=== PATIENT | female | born 1985 | race Two or more races ===

== ENCOUNTER 2018-11-19 19:39 | Emergency (ER) | payer MEDICAID, OTHER ==
[~2018-11-19] VITALS: Ht 157.5 cm; Wt 124.7 kg
[2018-11-19 20:24] VITALS: BP 120/85
[2018-11-19 20:59] LABS: Urine Bacteria NONE SEEN /hpf (None Seen); Urine Blood Negative /uL (Negative); Urine Mucus FEW (None Seen); Urine Specific Gravity 1.031 (1.001-1.035); Urine WBC 11 /hpf (0 - 5)
[2018-11-19 21:08] LABS: Basophils # (auto) 0 uL; Eosinophils # (auto) 0.2 uL; Hematocrit 36.7 % (36.0-46.0); Lymphocytes # (auto) 2.8 uL; Monocytes # (auto) 0.8 uL; Red Cell Distribution Width 15.8 % (11.8-14.3)
[2018-11-19 21:11] LABS: Basophils % (auto) 0.3 % (0.0-2.0); Eosinophils % (auto) 2.4 % (0.0-7.0); Hemoglobin 11.9 g/dL (12.2-16.2); Lymphocytes % (auto) 27.7 % (10.0-50.0); Mean Corpuscular Hemoglobin 25.2 pg (28.0-32.0); Mean Corpuscular Hgb Conc. 32.5 g/dL (32.0-36.0); Mean Corpuscular Volume 77.4 fL (80.0-100.0); Monocytes % (auto) 7.9 % (0.0-12.0); Neutrophils # (auto) 6.3 uL; Neutrophils % (auto) 61.7 % (37.0-80.0); Nucleated Red Blood Cells % 0.1 %; Platelet Count (auto) 400 10^3/uL (140-450); Red Blood Cells 4.74 10^6/uL (4.0-5.20); White Blood Cell 10.2 10^3/uL (4.4-10.8)
[2018-11-19 21:27] LABS: Albumin 3.7 g/dL (3.4-5.0); BUN/Creatinine Ratio 18.1; Calcium 9.1 mg/dL (8.5-10.1); Potassium 3.9 mmol/L (3.5-5.1)
[2018-11-19 21:39] LABS: Bilirubin, Total 0.3 mg/dL (0.2-1.0); Total Protein 7.7 g/dL (6.4-8.2)
== END 2018-11-19 23:24 | disposition left against medical advice (07) ==
LOC: ER 19:54
DX: R10.30 Lower abdominal pain, unspecified (principal); Z53.21 Procedure and treatment not carried out due to patient leaving prior to being seen by health care provider
CPT/HCPCS: 36415; 80053; 81001; 81025; 82150; 83690; 85025

== ENCOUNTER 2019-06-04 15:14 | Emergency (ER) | payer MEDICAID ==
[~2019-06-04] VITALS: Ht 157.5 cm; Wt 136.1 kg
[2019-06-04 15:34] VITALS: BP 120/88
[2019-06-04] MEDS ORDERED: cefTRIAXone SOD 1,000 MG VL IM ONE (16:15)
== END 2019-06-04 16:49 | disposition home or self-care (01) ==
LOC: ER 15:14
DX: J02.9 Acute pharyngitis, unspecified (principal); I10 Essential (primary) hypertension
CPT/HCPCS: 96372; 99283; J0696

== ENCOUNTER → 2019-09-21 | Emergency (ER) | payer MEDICAID ==
[~2019-09-21] VITALS: Ht 160 cm; Wt 127.0 kg
[~2019-09-21] MED LIST: HYDROcodone-ACET 7.5/325MG TAB PO ONE; KETOROLAC TROMETH 60MG/2ML VIAL IM ONE
[2019-09-21 14:29] LABS: Basophils # (auto) 0 10 ^3/uL (0-0.2); Eosinophils # (auto) 0 10 ^3/uL (0-0.8); Hematocrit 36.7 % (36.0-46.0); Hemoglobin 11.8 g/dL (12.2-16.2); Lymphocytes # (auto) 1.4 10 ^3/uL (0.4-5.4); Lymphocytes % (auto) 7.4 % (10.0-50.0); Mean Corpuscular Hemoglobin 24.8 pg (28.0-32.0); Mean Corpuscular Hgb Conc. 32.1 g/dL (32.0-36.0); Neutrophils # (auto) 16.8 10 ^3/uL (1.6-8.6)
[2019-09-21 14:31] LABS: Basophils % (auto) 0.1 % (0.0-2.0); Mean Corpuscular Volume 77.1 fL (80.0-100.0); Monocytes # (auto) 0.7 10 ^3/uL (0-1.3); Monocytes % (auto) 3.7 % (0.0-12.0); Neutrophils % (auto) 88.8 % (37.0-80.0); Platelet Count (auto) 446 10^3/uL (140-450); Red Blood Cells 4.76 10^6/uL (4.0-5.20); Red Cell Distribution Width 15.6 % (11.8-14.3); White Blood Cell 18.9 10^3/uL (4.4-10.8)
[2019-09-21 14:43] LABS: Albumin 3.5 g/dL (3.4-5.0); Calcium 9.3 mg/dL (8.5-10.1); Potassium 3.8 mmol/L (3.5-5.1)
[2019-09-21 14:46] LABS: BUN/Creatinine Ratio 22.6; Bilirubin, Total 0.2 mg/dL (0.2-1.0); CRP High Sensitivity 0.81 mg/dL (< 0.3); Total Protein 8.1 g/dL (6.4-8.2)
[2019-09-21 18:32] VITALS: BP 155/94
== END | disposition home or self-care (01) ==
LOC: ER 12:42
DX: R05 Cough (principal); R50.9 Fever, unspecified; M79.10 Myalgia, unspecified site; R06.02 Shortness of breath; I10 Essential (primary) hypertension; Z20.828 Contact with and (suspected) exposure to other viral communicable diseases
CPT/HCPCS: 36415; 71045; 80053; 81025; 82728; 85025; 85379; 86141; 87635; 96372; 99284; J1885

== ENCOUNTER 2022-10-12 10:20 | Emergency (ER) | payer MEDICAID ==
[~2022-10-12] VITALS: Ht 157.5 cm; Wt 163.1 kg
[2022-10-12 11:21] VITALS: BP 162/87; PULSE 76; RESP 20; TEMP 98.7; O2SAT 97
[2022-10-12 12:10] LABS: Urine Bacteria FEW /hpf (None Seen); Urine Blood Negative /uL (Negative); Urine Mucus FEW (None Seen); Urine Specific Gravity 1.021 (1.001-1.035); Urine WBC 15 /hpf (0 - 5)
[2022-10-12] MEDS ORDERED: IBUP-1456 PO (12:28)
[2022-10-12] MEDS ORDERED: PROM1SOL4 PO (12:28)
[2022-10-12] MEDS ORDERED: CIPR-173 PO (12:28)
== END 2022-10-12 12:34 | disposition home or self-care (01) ==
LOC: ER 10:20
DX: G44.209 Tension-type headache, unspecified, not intractable (principal); N39.0 Urinary tract infection, site not specified; J20.9 Acute bronchitis, unspecified; J03.90 Acute tonsillitis, unspecified; E11.9 Type 2 diabetes mellitus without complications; I10 Essential (primary) hypertension
CPT/HCPCS: 70450; 71045; 81001

== ENCOUNTER 2023-01-11 17:09 | Emergency (ER) | payer MEDICAID ==
[~2023-01-11] VITALS: Ht 160 cm; Wt 120.0 kg
[~2023-01-11 17:09] MED LIST changes: +CIPR-173 PO; -HYDROcodone-ACET 7.5/325MG TAB PO ONE; +IBUP-1456 PO; -KETOROLAC TROMETH 60MG/2ML VIAL IM ONE; +PROM1SOL4 PO
[2023-01-11 19:19] LABS: Urine Bacteria NONE SEEN /hpf (None Seen); Urine Blood Negative /uL (Negative); Urine Clarity Clear (Clear); Urine Color Colorless (Yellow); Urine Protein, UAD Negative (Negative); Urine Specific Gravity 1.019 (1.001-1.035); Urine Urobilinogen Normal (Negative); Urine WBC 8 /hpf (0 - 5); Urine pH 6.5 (5.0-8.0)
[2023-01-11] MEDS ORDERED: CIPR-173 PO (19:34)
[2023-01-11 22:00] VITALS: BP 153/95; PULSE 85; RESP 20; TEMP 98.4; O2SAT 95
== END 2023-01-11 22:06 | disposition home or self-care (01) ==
LOC: ER 17:09
DX: N39.0 Urinary tract infection, site not specified (principal); I10 Essential (primary) hypertension; E11.9 Type 2 diabetes mellitus without complications; Z79.1 Long term (current) use of non-steroidal anti-inflammatories (NSAID); Z79.899 Other long term (current) drug therapy
CPT/HCPCS: 81001

== ENCOUNTER 2024-06-16 10:08 | Emergency (ER) | payer MEDICAID ==
[~2024-06-16] VITALS: Ht 160 cm; Wt 155.0 kg
[2024-06-16 11:16] VITALS: BP 142/95; PULSE 80; RESP 17; TEMP 97.1; O2SAT 96
[2024-06-16] MEDS ORDERED: TRIA0.1P12 MT (11:43)
[2024-06-16] MEDS ORDERED: CEPH500C PO (11:43)
[2024-06-16] MEDS ORDERED: CETI5TAB6 PO (11:44)
--- NOTE | 2024-06-16 11:44 | ED.PDOC ---
SOB-HPI HPI Comments 38 year old presents for painful lip sore to the lower outer region Started 3 months ago No associated symptoms Chief Complaint: Flu like Time Seen by MD: 10:47 Primary Care Provider: SOUMYA Reviewed notes: Nurses Notes, Medications, Allergies Information Source: Patient Mode of Arrival: Ambulatory Past Medical History PAST MEDICAL HISTORY: DM, HTN, Denies Surgical History: Denies all surgeries LPN INSTRUCTOR History: No Pertinent LPN INSTRUCTOR History Family History Family History: Reviewed,noncontributory to illness Social History Smoker: Non-Smoker Alcohol: Denies ETOH Use Drugs: Denies Drug Use Lives In: Home All Other Systems: Reviewed and Negative (Per HPI) Physical Exam General Appearance: No Apparent Distress, Normal HEENT: Normal ENT Inspection, Pharynx Normal, TMs Normal Neck: Full Range of Motion, Non-Tender, Normal, Normal Inspection Respiratory: Chest Non-Tender, Lungs Clear, No Accessory Muscle Use, No Respiratory Distress, Normal Breath Sounds Cardiovascular: No Edema, No JVD, No Murmur, No Gallop, Normal Peripheral Pulses, Regular Rate/Rhythm Breast Exam: Deferred Gastrointestinal: No Organomegaly, Non Tender, No Pulsatile Mass, Normal Bowel Sounds, Soft Genitalia: Deferred Pelvic: Deferred Rectal: Deferred Extremities: No calf tenderness, Normal capillary refill, Normal inspection, Normal range of motion, Non-tender, No pedal edema Musculoskeletal : Apperance: Normal Neurologic: Alert, veterinary meat inspector II-XII nml as Tested, No Motor Deficits, Normal Affect, Normal Mood, No Sensory Deficits Cerebellar Function: Normal Reflexes: Normal Skin: Dry, Normal Color, Warm Lymphatic: No Adenopathy Was a procedure done? Was a procedure done?: No Differential Dx Differential Diagnosis: URI X-Ray, Labs, Meds, VS Vital Signs Date Time Temp Pulse Resp B/P (MAP) Pulse Ox O2 Delivery O2 Flow Rate FiO2 06/16/24 11:16 97.1 80 17 142/95 (111) 96 97.1 06/16/24 11:16 80 17 96 Room Air 06/16/24 10:28 97.1 80 17 142/95 (111) 96 97.1 X-Ray, Labs, Meds, VS Comment Presentation consistent with aphthous ulcer. No evidence of Ge's Angina, large abscess pocket, or other complications. Provided prescription for symptoms. Advised Pt on supportive therapies, including avoidance of salty or sugary foods/coffee/citrus, refraining from biting inner cheeks, applidation of ice to lesions, gentle use of soft-bristle toothbrushes Instructed Pt to f/up w/ PCP or ETC should symptoms worsen or not improve. Pt verbally expressed understanding and all questions were addressed to Pt's satisfaction. Time of 1ST Reevaluation: 11:38 Reevaluation 1ST: Improved Patient Education/Counseling: Diagnosis, Treatment Family Education/Counseling: Diagnosis, Treatment Departure 1 Departure Time of Disposition: 12:00 Impression: Primary Impression: Aphthous stomatitis Disposition: HOME / SELF CARE / HOMELESS Condition: Stable e-Prescriptions Cetirizine Hcl (Cetirizine Hcl) 5 Mg Tab 10 MG PO DAILY for 30 Days, #60 TAB 2 Refills Prov: CORINNE HAYES NP 06/16/24 Cephalexin Monohydrate (Cephalexin) 500 Mg Cap 1 CAP PO QID for 7 Days, #28 CAP 0 Refills Prov: CORINNE HAYES NP 06/16/24 Triamcinolone Acetonide (Triamcinolone In Orabase) 0.1 % Pst 1 APPLIC MT BID for 5 Days, #2.5 GRAMS 0 Refills Prov: CORINNE HAYES NP 06/16/24 Discharged With: Self Critical Care Note Critical Care Time?: No Stability Stability form required: No Heart Score Heart Score: Heart Score Response (Comments) Value History N/A 0 EKG N/A 0 Age N/A 0 Risk Factors N/A 0 Troponin N/A 0 Total 0 CORINNE HAYES NP Jun 16, 2024 11:44
== END 2024-06-16 11:58 | disposition home or self-care (01) ==
LOC: ER 10:08
DX: K12.0 Recurrent oral aphthae (principal)

== ENCOUNTER 2024-09-25 12:03 | Emergency (ER) | payer MEDICAID ==
[~2024-09-25] VITALS: Ht 160 cm; Wt 151.8 kg
[~2024-09-25 12:03] MED LIST changes: +CEPH500C PO; +CETI5TAB6 PO; +TRIA0.1P12 MT
[2024-09-25 12:56] VITALS: BP 144/97; TEMP 98
--- NOTE | 2024-09-25 13:14 | ED.PDOC ---
History of Present Illness HPI Comments Patient is a 39-year-old female with a past medical history of hypertension, diabetes presented to the ED with a chief complaint of headache. Patient reports she started to have headache 2 weeks ago on the left side and across the forehead, intermittent, [id number] in severity, denied any visual abnorma lity, no focal motor weakness, no sensory abnormality. Patient also reported of left-sided chest pain which was nonradiating, pressure-like and intermittent denied any shortness of breath or palpitations. She reports to be having intermittent dizziness when she walks and gets up from sitting position. Chief Complaint: Headache Time Seen by MD: 12:21 Primary Care Provider: SOUMYA Allergies: Coded Allergies: NO KNOWN ALLERGIES (Unverified , 12/16/13) Home Meds Active Scripts Cetirizine Hcl (Cetirizine Hcl) 5 Mg Tab, 10 MG PO DAILY for 30 Days, #60 TAB 2 Refills Prov:CORINNE HAYES NP 06/16/24 Cephalexin Monohydrate (Cephalexin) 500 Mg Cap, 1 CAP PO QID for 7 Days, #28 CAP 0 Refills Prov:CORINNE HAYES NP 06/16/24 Triamcinolone Acetonide (Triamcinolone In Orabase) 0.1 % Pst, 1 APPLIC MT BID for 5 Days, #2.5 GRAMS 0 Refills Prov:CORINNE HAYES NP 06/16/24 Ciprofloxacin Hcl (Cipro) 500 Mg Tab, 1 TAB PO BID, #14 TAB Prov:MAHESH BOTELLO MD 01/11/23 Ibuprofen (Ibuprofen) 800 Mg Tab, 1 TAB PO TID, #30 TAB Prov:CORONA ROBLES 10/12/22 Promethazine-Dm (Promethazine Dm 6.25-15 mg/5Ml) 1 Lea Lea, 5 ML PO TID, #150 ML Prov:CORONA ROBLES 10/12/22 Ciprofloxacin Hcl (Cipro) 500 Mg Tab, 1 TAB PO BID, #20 TAB Prov:CORONA ROBLES 10/12/22 Past Medical History PAST MEDICAL HISTORY: DM, HTN, Denies Surgical History: Denies all surgeries CHEMIST INTERNSHIP History: No Pertinent CHEMIST INTERNSHIP History Family History Family History: Reviewed,noncontributory to illness Social History Smoker: Non-Smoker Alcohol: Denies ETOH Use Drugs: Denies Drug Use Lives In: Home Constitutional: denies: chills, diaphoresis, fatigue, fever, malaise, sweats, weakness, others EENTM: reports: ear bleeding Respiratory: denies: cough, hemoptysis, orthopnea, SOB at rest, shortness of breath, SOB with excertion, stridor, wheezing, others Cardiovascular: denies: chest pain, dizzy spells, diaphoresis, Dyspnea on exertion, edema, irregular heart beat, left arm pain, lightheadedness, palpitations, PND, syncope, others Gastrointestinal: denies: abdomen distended, abdominal pain, blood streaked bowels, constipated, diarrhea, dysphagia, difficulty swallowing, hematemesis, melena, nausea, poor appetite, poor fluid intake, rectal bleeding, rectal pain, vomiting, others Genitourinary: denies: abnormal vagina bleeding, burning, dyspareunia, dysuria, flank pain, frequency, hematuria, incontinence, pain, , vagina discharge, urgency, others Neurological: reports: dizziness, headache Musculoskeletal: denies: back pain, gout, joint pain, joint swelling, muscle pain, muscle stiffness, neck pain, others Integumetry: denies: bruises, change in color, change in hair/nails, dryness, laceration, lesions, lumps, rash, wounds, others Allergic/Immunocompromised: denies: Difficulty Healing, Frequent Infections, Hives, Itching, others Hematologic/Lymphatic: denies: anemia, blood clots, easy bleeding, easy bruising, swollen glands, others Endocrine: denies: excessive hunger, excessive sweating, excessive thirst, excessive urination, flushing, intolerance to cold, intolerance to heat, unexplained weight gain, unexplained weight loss, others Psychiatric: denies: anxiety, bipolar disorder, depression, hopeless, panic disorder, schizophrenia, sleepless, suicidal, others Physical Exam General Appearance: No Apparent Distress, Normal HEENT: PERRL/EOMI, Pharynx Normal, TM Abnormal (R) Neck: Full Range of Motion, Non-Tender Respiratory: Chest Non-Tender, Lungs Clear, No Accessory Muscle Use, No Respiratory Distress, Normal Breath Sounds Cardiovascular: No Edema, No JVD, No Murmur, Regular Rate/Rhythm Breast Exam: Deferred Gastrointestinal: No Organomegaly, Non Tender, No Pulsatile Mass, Normal Bowel Sounds, Soft Genitalia: Deferred Pelvic: Deferred Rectal: Deferred Extremities: Normal inspection, Normal range of motion, Non-tender, No pedal edema Neurologic: Alert, machine cementer II-XII nml as Tested, No Motor Deficits, Normal Affect, Normal Mood, No Sensory Deficits Cerebellar Function: Normal Reflexes: NOT DONE Skin: Dry, Normal Color Peripheral Pulses: 2+ dorsalis pedis (R), 2+ dorsalis pedis (L), 2+ Radial (R), 2+ Radial (L) Lymphatic: No Adenopathy Was a procedure done? Was a procedure done?: No EKG EKG : Woodruff: Normal Cardiac Rhythm: NSR Block: None Hypertrophy: None ST: Normal Differential Dx Considerations may include: migraine, tension type headache, vertigo, chest wall pain, costochondritis, X-Ray, Labs, Meds, VS Vital Signs Date Time Temp Pulse Resp B/P (MAP) Pulse Ox O2 Delivery O2 Flow Rate FiO2 09/25/24 13:30 87 19 97 Room Air* 0 21 09/25/24 12:56 98.0 82 17 144/97 (113) 96 98.0 Lab Test 09/25/24 14:25 09/25/24 13:22 09/25/24 12:39 Range/Units Troponin I High Sensitivity < 3 L < 3 L </=34 ng/L White Blood Count 8.1 4.4-10.8 10^3/uL Red Blood Count 4.68 4.0-5.20 10^6/uL Hemoglobin 12.8 12.2-16.2 g/dL Hematocrit 37.6 36.0-46.0 % Mean Corpuscular Volume 80.4 80.0-100.0 fL Mean Corpuscular Hemoglobin 27.3 L 28.0-32.0 pg Mean Corpuscular Hemoglobin Concent 33.9 32.0-36.0 g/dL Red Cell Distribution Width 14.2 11.8-14.3 % Platelet Count 391 140-450 10^3/uL Mean Platelet Volume 8.3 6.9-10.8 fL Neutrophils (%) (Auto) 64.7 37.0-80.0 % Lymphocytes (%) (Auto) 25.4 10.0-50.0 % Monocytes (%) (Auto) 6.6 0.0-12.0 % Eosinophils (%) (Auto) 2.8 0.0-7.0 % Basophils (%) (Auto) 0.5 0.0-2.0 % Neutrophils # (Auto) 5.2 1.6-8.6 10 ^3/uL Lymphocytes # (Auto) 2.0 0.4-5.4 10 ^3/uL Monocytes # (Auto) 0.5 0-1.3 10 ^3/uL Eosinophils # (Auto) 0.2 0-0.8 10 ^3/uL Basophils # (Auto) 0 0-0.2 10 ^3/uL Nucleated Red Blood Cells 0.0 % Sodium Level 138 136-145 mmol/L Potassium Level 4.2 3.5-5.1 mmol/L Chloride Level 106 98-107 mmol/L Carbon Dioxide Level 26 20-31 mmol/L Anion Gap 6 5-15 Blood Urea Nitrogen 11 9-23 mg/dL Creatinine 0.64 0.550-1.02 mg/dL Glomerular Filtration Rate Calc 116 >90 mL/min BUN/Creatinine Ratio 17.2 10.0-20.0 Serum Glucose 84 74-106 mg/dL Calcium Level 10.1 8.7-10.4 mg/dL Urine Color Yellow Yellow Urine Clarity Clear Clear Urine pH 6.5 5.0-9.0 Urine Specific [place] 1.026 1.001-1.035 Urine Protein Negative Negative Urine Ketones Negative Negative Urine Blood 1+ H Negative /uL Urine Nitrite Negative Negative Urine Bilirubin Negative Negative Urine Urobilinogen Normal Negative mg/dL Urine Leukocyte Esterase 2+ Negative /uL Urine RBC <1 0 - 4 /hpf Urine Microscopic WBC 7 H 0-5 /HPF Urine Squamous Epithelial Cells Few <5 /hpf Urine Bacteria Few H None Seen /hpf Urine Mucus Few None Seen Urine Glucose Normal Normal mg/dL Urine Test Negative Negative Current Medications Medications (Trade) Dose Ordered Sig/Isha Route Start Time Stop Time Status Last Admin Ibuprofen (Motrin Tablet) 600 mg ONCE ONCE PO 09/25/24 13:00 09/25/24 13:01 DC 09/25/24 13:46 Patient 39-year-old female with a history of hypertension and diet-controlled diabetes, morbidly obese presented to the ER with a left-sided headache for the last 2 weeks. Patient denied any blurred vision, no sensory abnormalities, on physical exam there were no motor deficits, no ataxia, no cerebellar signs. Patient also reported of noticing blood on the Q-tips when she cleaned right ear 3 days ago and on examination no perforation in the tympanic membrane was seen but blood was seen in the external ear canal and patient did not have any hearing deficit. Patient is a advised to get a head CT but she denied. Patient reported having mild relief from the headache with ibuprofen. Patient was advised to visit her primary care provider in case she continues to have headache and notices anymore blood from the ear. Time of 1ST Reevaluation: 14:15 Reevaluation 1ST: Improved Patient Education/Counseling: Diagnosis, Treatment Family Education/Counseling: No Family Present SEPSIS Sepsis Screen Vital Signs Date Time Temp Pulse Resp B/P (MAP) Pulse Ox O2 Delivery O2 Flow Rate FiO2 09/25/24 13:30 87 19 97 Room Air* 0 21 09/25/24 12:56 98.0 82 17 144/97 (113) 96 98.0 Laboratory Tests Test 09/25/24 13:22 White Blood Count 8.1 10^3/uL (4.4-10.8) Medications Medications Dose Ordered Sig/Isha Route Start Time Stop Time Status Last Admin Dose Admin Ibuprofen 600 mg ONCE ONCE PO 09/25/24 13:00 09/25/24 13:01 DC 09/25/24 13:46 Departure 1 Departure Time of Disposition: 15:30 Impression: Primary Impression: Migraine Additional Impression: Tension headache Disposition: 01 HOME / SELF CARE / HOMELESS Condition: Stable Critical Care Note Critical Care Time?: No Stability Stability form required: No Heart Score Heart Score: Heart Score Response (Comments) Value History N/A 0 EKG N/A 0 Age N/A 0 Risk Factors N/A 0 Troponin N/A 0 Total 0 BRENNA NOBLE RESIDENT Sep 25, 2024 13:14
[2024-09-25 13:30] VITALS: PULSE 87; RESP 19; O2SAT 97
[2024-09-25 13:38] LABS: Hematocrit 37.6 % (36.0-46.0); Hemoglobin 12.8 g/dL (12.2-16.2); Mean Corpuscular Hemoglobin 27.3 pg (28.0-32.0); Mean Corpuscular Volume 80.4 fL (80.0-100.0); Nucleated Red Blood Cells % 0.0 %
[2024-09-25 13:45] LABS: Chloride 106 mmol/L (98-107); Potassium 4.2 mmol/L (3.5-5.1); Sodium 138 mmol/L (136-145)
[2024-09-25 13:46] LABS: Anion Gap 6 (5-15); Carbon Dioxide 26 mmol/L (20-31)
[2024-09-25] MEDS: IBUPROFEN 600 MG TAB PO ONE (13:46)
[2024-09-25 13:47] LABS: Calcium 10.1 mg/dL (8.7-10.4)
[2024-09-25 13:51] LABS: Glucose 84 mg/dL (74-106)
[2024-09-25 13:52] LABS: BUN/Creatinine Ratio 17.2 (10.0-20.0); Blood Urea Nitrogen 11 mg/dL (9-23)
[2024-09-25 14:01] LABS: Urine Protein, UAD Negative (Negative)
== END 2024-09-25 16:36 | disposition home or self-care (01) ==
LOC: ER 12:03
DX: G43.909 Migraine, unspecified, not intractable, without status migrainosus (principal); G44.209 Tension-type headache, unspecified, not intractable; E11.9 Type 2 diabetes mellitus without complications; I10 Essential (primary) hypertension; Z79.1 Long term (current) use of non-steroidal anti-inflammatories (NSAID); Z79.899 Other long term (current) drug therapy
CPT/HCPCS: 36415; 80048; 81001; 81025; 84484; 85025

== ENCOUNTER 2024-10-28 09:49 | Emergency (ER) | payer MEDICAID ==
[~2024-10-28] VITALS: Ht 160 cm; Wt 152.6 kg
[2024-10-28 09:51] VITALS: TEMP 97.8
--- NOTE | 2024-10-28 11:00 | ED.PDOC ---
History of Present Illness HPI Comments A 39-YEAR-OLD FEMALE WITH A HISTORY OF DIABETES, AND HYPERTENSION, PRESENTS TO THE ED WITH A C/C OF A COUGH, WITH ASSOCIATED DYSURIA. PATIENT STATES THAT HER SYMPTOMS HAVE BEEN ONSET FOR THE PAST 3 WEEKS, WITH NO ALLEVIATING FACTORS AT THIS TIME. PATIENT NOTES SHE HAS BEEN TAKING HER PRESCRIBED KEFLEX MEDICATION, BUT DENIES ANY ALLEVIATION. PATIENT DENIES ANY NAUSEA, VOMITING, DIARRHEA, HEADACHE, OR ANY OTHER ASSOCIATED SYMPTOMS, MODIFIERS AT THIS TIME. Chief Complaint: Cough Time Seen by MD: 11:00 Primary Care Provider: SOUMYA Reviewed Notes: Nurses Notes, Medications, Allergies Allergies: Coded Allergies: NO KNOWN ALLERGIES (Unverified , 12/16/13) Home Meds Active Scripts Prednisone (Prednisone) 20 Mg Tab, 60 MG PO DAILY, #18 TAB Prov:COROAN ROBLES 10/28/24 Promethazine-Dm (Promethazine Dm 6.25-15 mg/5Ml) 1 Lea Lea, 5 ML PO TID, #180 ML Prov:CORONA ROBLES 10/28/24 Ciprofloxacin Hcl (Cipro) 500 Mg Tab, 1 TAB PO BID, #20 TAB Prov:CORONA ROBLES 10/28/24 Cetirizine Hcl (Cetirizine Hcl) 5 Mg Tab, 10 MG PO DAILY for 30 Days, #60 TAB 2 Refills Prov:CORINNE HAYES NP 06/16/24 Cephalexin Monohydrate (Cephalexin) 500 Mg Cap, 1 CAP PO QID for 7 Days, #28 CAP 0 Refills Prov:CORINNE HAYES NP 06/16/24 Triamcinolone Acetonide (Triamcinolone In Orabase) 0.1 % Pst, 1 APPLIC MT BID for 5 Days, #2.5 GRAMS 0 Refills Prov:CORINNE HAYES NP 06/16/24 Ciprofloxacin Hcl (Cipro) 500 Mg Tab, 1 TAB PO BID, #14 TAB Prov:MAHESH BOTELLO MD 01/11/23 Ibuprofen (Ibuprofen) 800 Mg Tab, 1 TAB PO TID, #30 TAB Prov:CORONA ROBLES 10/12/22 Promethazine-Dm (Promethazine Dm 6.25-15 mg/5Ml) 1 Lea Lea, 5 ML PO TID, #150 ML Prov:CORONA ROBLES 10/12/22 Ciprofloxacin Hcl (Cipro) 500 Mg Tab, 1 TAB PO BID, #20 TAB Prov:CORONA ROBLES 10/12/22 Information Source: Patient Mode of Arrival: Ambulatory Severity: Mild, Moderate Timing: Weeks Duration: Intermittent Prehospital treatment: None Medication Refill: For: Other (COUGH AND DYSURIA ) Past Medical History PAST MEDICAL HISTORY: DM, HTN Surgical History: Denies all surgeries SILK SPOTTER History: No Pertinent SILK SPOTTER History Family History Family History: Reviewed,noncontributory to illness Social History Smoker: Non-Smoker Alcohol: Denies ETOH Use Drugs: Denies Drug Use Lives In: Home Constitutional: denies: chills, diaphoresis, fatigue, fever, malaise, sweats, weakness, others EENTM: reports: nose congestion; denies: blurred vision, double vision, ear bleeding, ear discharge, ear drainage, ear pain, ear ringing, eye pain, eye redness, hearing loss, mouth pain, mouth swelling, nasal discharge, nose bleeding, nose pain, photophobia, tearing, throat pain, throat swelling, voice changes, others Respiratory: reports: cough; denies: hemoptysis, orthopnea, SOB at rest, shortness of breath, SOB with excertion, stridor, wheezing, others Cardiovascular: denies: chest pain, dizzy spells, diaphoresis, Dyspnea on exertion, edema, irregular heart beat, left arm pain, lightheadedness, palpita tions, PND, syncope, others Gastrointestinal: denies: abdomen distended, abdominal pain, blood streaked doretha wels, constipated, diarrhea, dysphagia, difficulty swallowing, hematemesis, melena, nausea, poor appetite, poor fluid intake, rectal bleeding, rectal pain, vomiting, others Genitourinary: reports: dysuria; denies: abnormal vagina bleeding, burning, dyspareunia, flank pain, frequency, hematuria, incontinence, pain, , vagina discharge, urgency, others Neurological: denies: dizziness, fainting, headache, left sided numbness, left sided weakness, numbness, paresthesia, pre-existing deficit, right sided numbness, right sided weakness, seizure, speech problems, tingling, tremors, weakness, others Musculoskeletal: denies: back pain, gout, joint pain, joint swelling, muscle pain, muscle stiffness, neck pain, others Integumetry: denies: bruises, change in color, change in hair/nails, dryness, laceration, lesions, lumps, rash, wounds, others Allergic/Immunocompromised: denies: Difficulty Healing, Frequent Infections, Hives, Itching, others Hematologic/Lymphatic: denies: anemia, blood clots, easy bleeding, easy bruising, swollen glands, others Endocrine: denies: excessive hunger, excessive sweating, excessive thirst, excessive urination, flushing, intolerance to cold, intolerance to heat, unexplained weight gain, unexplained weight loss, others Psychiatric: denies: anxiety, bipolar disorder, depression, hopeless, panic d isorder, schizophrenia, sleepless, suicidal, others All Other Systems: Reviewed and Negative Physical Exam General Appearance: No Apparent Distress, Obese HEENT: Normal ENT Inspection, PERRL/EOMI, Pharynx Normal, TMs Normal Neck: Full Range of Motion, Non-Tender, Normal, Normal Inspection Respiratory: Chest Non-Tender, Expiration, No Accessory Muscle Use, No Respiratory Distress, Rhonchi Cardiovascular: No Edema, No JVD, No Murmur, No Gallop, Normal Peripheral Pulses, Regular Rate/Rhythm Breast Exam: Deferred Gastrointestinal: No Organomegaly, Non Tender, No Pulsatile Mass, Normal Bowel Sounds, Soft Genitalia: Deferred Pelvic: Deferred Rectal: Deferred Extremities: No calf tenderness, Normal capillary refill, Normal inspection, Normal range of motion, Non-tender, No pedal edema Musculoskeletal : Apperance: Normal Neurologic: Alert, museum educator II-XII nml as Tested, No Motor Deficits, Normal Affect, Normal Mood, No Sensory Deficits Cerebellar Function: Normal Reflexes: Normal Skin: Dry, Normal Color, Warm Peripheral Pulses: 2+ carotid (R), 2+ carotid (L) Lymphatic: No Adenopathy Was a procedure done? Was a procedure done?: No Differential Dx Considerations may include: COUGH, URINARY TRACT INFECTION, BRONCHITIS, INFLUENZA,PNEUMONIA, BRONCHITIS X-Ray, Labs, Meds, VS Vital Signs Date Time Temp Pulse Resp B/P (MAP) Pulse Ox O2 Delivery O2 Flow Rate FiO2 10/28/24 09:51 97.8 85 18 136/78 95 97.8 X-Ray, Labs, Meds, VS Comment EXTERNAL MEDICAL RECORDS REVIEWED: [NONE] INDEPENDENT HISTORIANS: [NONE] SOCIAL DETERMINANTS OF HEALTH: [NONE] LABS ORDERED: URINARY ANALYSIS REVIEWED AND INTERPRETED RESULTS: UTI IMAGING ORDERED: CHEST X-RAY ORDERED: NO ACUTE FINDING. TREATMENTS ORDERED: PROCEDURES PERFORMED: NONE CRITICAL CARE TIME: NONE I HAVE DISCUSSED THE PATIENT WITH THE ATTENDING PHYSICIAN (DOT) AND S/HE AGREES WITH THE PATIENT'S PLAN OF CARE AND DISPOSITION. BASED ON HISTORY OF PRESENT ILLNESS, AND PHYSICAL EXAM, PATIENT WILL BE DISCHARGED HOME. DISCUSSED PLAN FOR DISCHARGE HOME WITH RX [CIPRO, PHENERGAN AND PREDNISONE]. MEDICATION WARNINGS GIVEN. SHARED DECISION MAKING: DISCUSSED WITH PATIENT THAT THEIR WORKUP WAS NORMAL. PATIENT INSTRUCTED TO FOLLOW UP WITH PRIMARY CARE PROVIDER IN 1-2 DAYS FOR RE- EVALUATION OF SYMPTOMS. PATIENT VERBALIZES UNDERSTANDING TO RETURN TO ED FOR NEW OR WORSENING SYMPTOMS OR IF FOLLOW UP WITH PCP CANNOT BE OBTAINED. PATIENT FEELS COMFORTABLE GOING HOME AT THIS TIME. ALL QUESTIONS ADDRESSED AT TIME OF DISCHARG E. Time of 1ST Reevaluation: 11:31 Reevaluation 1ST: Improved Patient Education/Counseling: Diagnosis, Treatment, Need For Follow Up Family Education/Counseling: Diagnosis, Treatment, Need For Follow Up Medical Screening: No EMC Exist At This Time SEPSIS Sepsis Screen Date sepsis recognized/suspect: Oct 28, 2024 Time Sepsis recognized/suspect: 951 Recent Procedure: No On Antibiotic Therapy: No Respiratory Rate >20: No Heart Rate >90: No Temp<36 C (96.8 F) or >38.3 C: No SBP <90 or MAP <65 mmHG: No New Acute Mental Status Change: No Is the patient on CPAP, BIPAP,: No Physician Orders Chest Portable (10/28/24 09:58) Vital Signs Date Time Temp Pulse Resp B/P (MAP) Pulse Ox O2 Delivery O2 Flow Rate FiO2 10/28/24 09:51 97.8 85 18 136/78 95 97.8 Departure 1 Departure Time of Disposition: 11:10 Impression: Primary Impression: Acute bronchitis Qualified Codes: J20.9 - Acute bronchitis, unspecified Additional Impression: Acute UTI (urinary tract infection) Disposition: HOME / SELF CARE / HOMELESS Condition: Stable Additional Instructions: FOLLOW-UP WITH PCP IN 1 TO 2 DAYS. TAKE MEDICATIONS PRESCRIBED. RETURN TO ED FOR ANY NEW OR WORSENING SYMPTOMS. e-Prescriptions Prednisone (Prednisone) 20 Mg Tab 60 MG PO DAILY, #18 TAB Prov: CORONA ROBLES 10/28/24 Promethazine-Dm (Promethazine Dm 6.25-15 mg/5Ml) 1 Lea Lea 5 ML PO TID, #180 ML Prov: CORONA ROBLES 10/28/24 Ciprofloxacin Hcl (Cipro) 500 Mg Tab 1 TAB PO BID, #20 TAB Prov: CORONA ROBLES 10/28/24 Discharged With: Self Critical Care Note Critical Care Time?: No Stability Stability form required: No Heart Score Heart Score: Heart Score Response (Comments) Value History N/A 0 EKG N/A 0 Age N/A 0 Risk Factors N/A 0 Troponin N/A 0 Total 0 I personally scribed for CORONA ROBLES ([email or web address]) on 10/28/24 at 11:00. Electronically submitted by Catracho Hansen ([email or web address]). I personally scribed for CORONA ROBLES ([email or web address]) on 10/28/24 at 11:04. Electronically submitted by Catracho Hansen ([email or web address]). CORONA ROBLES Oct 28, 2024 11:00
[2024-10-28] MEDS ORDERED: PRED20TA2 PO (11:02)
[2024-10-28 11:10] VITALS: BP 141/84; PULSE 85; RESP 18; O2SAT 97
--- NOTE | 2024-10-28 11:13 | DVH ---
CHEST RADIOGRAPH Indication:COUGH Technique: Single frontal view of the chest was obtained COMPARISON: 10/12/2022 FINDINGS: Lines and Tubes: None Lungs: Clear Pleura: No effusion. No pneumothorax. Cardiomediastinal contours: Unremarkable Bones: Unremarkable IMPRESSION: No acute disease.
== END 2024-10-28 11:08 | disposition home or self-care (01) ==
LOC: ER 09:49
DX: J20.9 Acute bronchitis, unspecified (principal); N39.0 Urinary tract infection, site not specified; I10 Essential (primary) hypertension; E11.9 Type 2 diabetes mellitus without complications; Z79.899 Other long term (current) drug therapy; Z79.52 Long term (current) use of systemic steroids; Z79.1 Long term (current) use of non-steroidal anti-inflammatories (NSAID)
CPT/HCPCS: 71045

== ENCOUNTER 2024-10-28 19:38 | Emergency (ER) | payer MEDICAID ==
[~2024-10-28] VITALS: Ht 160 cm; Wt 150.0 kg
[~2024-10-28 19:38] MED LIST changes: +PRED20TA2 PO
[2024-10-28 20:09] VITALS: BP 134/85; PULSE 94; RESP 18; TEMP 99.3; O2SAT 96
--- NOTE | 2024-10-28 20:30 | ED.PDOC ---
HPI Allergic reaction HPI Comments 39 year old female presents to ER with complaints of possible allergic reaction x 1 day. Patient states she started experiencing 10/10 sore throat pain and frontal headache 2 hours after she took her 1st dose of prednisone that she was prescribed for acute bronchitis in here earlier today and believes she is "havin g an allergic reaction". Patient presents to ER ambulatory on arrival, with steady gait, speaking in clear and complete sentences, in no distress. Denies fever, shortness of breath, chest pain, difficulty swallowing, dizziness, palpitations, rash/skin changes or any further symptoms/complaints Chief Complaint: Allergic Reaction Time Seen by MD: 19:47 Primary Care Provider: SOUMYA Reviewed Notes: Nurses Notes, Medications, Allergies Allergies: Coded Allergies: NO KNOWN ALLERGIES (Unverified , 12/16/13) Home Meds Active Scripts Prednisone (Prednisone) 20 Mg Tab, 60 MG PO DAILY, #18 TAB Prov:CORONA ROBLES 10/28/24 Promethazine-Dm (Promethazine Dm 6.25-15 mg/5Ml) 1 Lea Lea, 5 ML PO TID, #180 ML Prov:CORONA ROBLES 10/28/24 Ciprofloxacin Hcl (Cipro) 500 Mg Tab, 1 TAB PO BID, #20 TAB Prov:CORONA ROBLES 10/28/24 Cetirizine Hcl (Cetirizine Hcl) 5 Mg Tab, 10 MG PO DAILY for 30 Days, #60 TAB 2 Refills Prov:CORINNE HAYES NP 06/16/24 Cephalexin Monohydrate (Cephalexin) 500 Mg Cap, 1 CAP PO QID for 7 Days, #28 CAP 0 Refills Prov:CORINNE HAYES NP 06/16/24 Triamcinolone Acetonide (Triamcinolone In Orabase) 0.1 % Pst, 1 APPLIC MT BID for 5 Days, #2.5 GRAMS 0 Refills Prov:CORINNE HAYES NP 06/16/24 Ciprofloxacin Hcl (Cipro) 500 Mg Tab, 1 TAB PO BID, #14 TAB Prov:MAHESH BOTELLO MD 01/11/23 Ibuprofen (Ibuprofen) 800 Mg Tab, 1 TAB PO TID, #30 TAB Prov:CORONA ROBLES 10/12/22 Promethazine-Dm (Promethazine Dm 6.25-15 mg/5Ml) 1 Lea Lea, 5 ML PO TID, #150 ML Prov:CORONA ROBLES 10/12/22 Ciprofloxacin Hcl (Cipro) 500 Mg Tab, 1 TAB PO BID, #20 TAB Prov:CORONA ROBLES 10/12/22 Information Source: Patient Mode of Arrival: Ambulatory Past Medical History PAST MEDICAL HISTORY: DM, HTN Surgical History: Denies all surgeries SUPPLY CLERK History: No Pertinent SUPPLY CLERK History Family History Family History: Unknown Social History Smoker: Non-Smoker Alcohol: Denies ETOH Use Drugs: Denies Drug Use Lives In: Home Constitutional: denies: chills, diaphoresis, fatigue, fever, malaise, sweats, weakness, others EENTM: reports: others (As stated in HPI) Respiratory: denies: cough, hemoptysis, orthopnea, SOB at rest, shortness of breath, SOB with excertion, stridor, wheezing, others Cardiovascular: denies: chest pain, dizzy spells, diaphoresis, Dyspnea on exertion, edema, irregular heart beat, left arm pain, lightheadedness, palpitations, PND, syncope, others Gastrointestinal: denies: abdomen distended, abdominal pain, blood streaked bowels, constipated, diarrhea, dysphagia, difficulty swallowing, hematemesis, melena, nausea, poor appetite, poor fluid intake, rectal bleeding, rectal pain, vomiting, others Genitourinary: denies: abnormal vagina bleeding, burning, dyspareunia, dysuria, flank pain, frequency, hematuria, incontinence, pain, , vagina discharge, urgency, others Neurological: reports: others (As stated in HPI) Musculoskeletal: denies: back pain, gout, joint pain, joint swelling, muscle pain, muscle stiffness, neck pain, others Integumetry: denies: bruises, change in color, change in hair/nails, dryness, laceration, lesions, lumps, rash, wounds, others Allergic/Immunocompromised: denies: Difficulty Healing, Frequent Infections, Hives, Itching, others Hematologic/Lymphatic: denies: anemia, blood clots, easy bleeding, easy bruising, swollen glands, others Endocrine: denies: excessive hunger, excessive sweating, excessive thirst, excessive urination, flushing, intolerance to cold, intolerance to heat, unexplained weight gain, unexplained weight loss, others Psychiatric: denies: anxiety, bipolar disorder, depression, hopeless, panic disorder, schizophrenia, sleepless, suicidal, others Physical Exam General Appearance: No Apparent Distress, Obese HEENT: Normal ENT Inspection, PERRL/EOMI, Pharynx Normal, TMs Normal Neck: Full Range of Motion, Non-Tender, Normal Respiratory: Chest Non-Tender, Lungs Clear, No Accessory Muscle Use, No Respiratory Distress, Normal Breath Sounds Cardiovascular: No Murmur, No Gallop, Regular Rate/Rhythm Breast Exam: Deferred Gastrointestinal: NOT DONE Genitalia: Deferred Pelvic: Deferred Rectal: Deferred Extremities: Normal capillary refill, Normal range of motion Neurologic: Alert, thin film technician II-XII nml as Tested, No Motor Deficits, Normal Affect, Normal Mood, No Sensory Deficits Cerebellar Function: Normal Reflexes: Normal Skin: Dry, Normal Color, Warm Peripheral Pulses: 2+ Radial (R), 2+ Radial (L), 2+ Brachial (R), 2+ Brachial (L) Lymphatic: No Adenopathy Was a procedure done? Was a procedure done?: No Sedation Sedation?: No Differential diagnosis (all) Differential Diagnosis: Anaphylaxis, Angioedema, Bronchospasm X-Ray, Labs, Meds, VS Vital Signs Date Time Temp Pulse Resp B/P (MAP) Pulse Ox O2 Delivery O2 Flow Rate FiO2 10/28/24 20:09 94 18 96 Room Air 10/28/24 20:09 99.3 94 18 134/85 (101) 96 99.3 10/28/24 19:39 98.3 99 18 142/85 96 98.3 Current Medications Medications (Trade) Dose Ordered Sig/Isha Route Start Time Stop Time Status Last Admin Acetaminophen (Tylenol Tablet) 650 mg ONCE ONCE PO 10/28/24 20:30 10/28/24 20:31 DC 10/28/24 20:35 Tylenol 650 mg PO ordered Patient had improvement in symptoms, tolerating p.o. intake well, vitals stable and in no distress prior to discharge Advised to drink plenty of fluids Previous chart visit reviewed Advised to follow up with PCP in 1-2 days Patient verbalized understanding and agreeable with current plan of care Advised to return to ER immediately if symptoms worsen Time of 1ST Reevaluation: 20:04 Reevaluation 1ST: N/A Patient Education/Counseling: Diagnosis, Treatment, Prognosis, Need For Follow Up Family Education/Counseling: No Family Present SEPSIS Sepsis Screen Date sepsis recognized/suspect: Oct 28, 2024 Time Sepsis recognized/suspect: 1938 Recent Procedure: No On Antibiotic Therapy: Yes Respiratory Rate >20: No Heart Rate >90: Yes Temp<36 C (96.8 F) or >38.3 C: No SBP <90 or MAP <65 mmHG: No New Acute Mental Status Change: No Is the patient on CPAP, BIPAP,: No Vital Signs Date Time Temp Pulse Resp B/P (MAP) Pulse Ox O2 Delivery O2 Flow Rate FiO2 10/28/24 20:09 94 18 96 Room Air 10/28/24 20:09 99.3 94 18 134/85 (101) 96 99.3 10/28/24 19:39 98.3 99 18 142/85 96 98.3 Medications Medications Dose Ordered Sig/Isha Route Start Time Stop Time Status Last Admin Dose Admin Acetaminophen 650 mg ONCE ONCE PO 10/28/24 20:30 10/28/24 20:31 DC 10/28/24 20:35 Departure 1 Departure Time of Disposition: 20:28 Impression: Primary Impression: Acute bronchitis Qualified Codes: J20.9 - Acute bronchitis, unspecified Additional Impression: Morbid obesity due to excess calories Disposition: 01 HOME / SELF CARE / HOMELESS Condition: Stable Discharged With: Self Critical Care Note Critical Care Time?: No Stability Stability form required: No Heart Score Heart Score: Heart Score Response (Comments) Value History N/A 0 EKG N/A 0 Age N/A 0 Risk Factors N/A 0 Troponin N/A 0 Total 0 CHALINO ARMSTRONG Oct 28, 2024 20:30
[2024-10-28] MEDS: ACETAMINOPHEN 325 MG TAB PO ONE (20:35)
== END 2024-10-28 20:57 | disposition home or self-care (01) ==
LOC: ER 19:38
DX: J20.9 Acute bronchitis, unspecified (principal); E66.01 Morbid (severe) obesity due to excess calories; I10 Essential (primary) hypertension; E11.9 Type 2 diabetes mellitus without complications; Z79.52 Long term (current) use of systemic steroids; Z79.1 Long term (current) use of non-steroidal anti-inflammatories (NSAID); Z79.899 Other long term (current) drug therapy; Z68.43 Body mass index [BMI] 50.0-59.9, adult